=== PATIENT | male | born 1950 | race Caucasian/White ===

== ENCOUNTER 2017-12-23 13:01 | Emergency (ER) | payer OTHER, MEDICARE ==
[~2017-12-23] VITALS: Ht 188 cm; Wt 99.8 kg
[2017-12-23 13:51] LABS: ABSOLUTE BASOPHIL COUNT 0 /CUMM (0.0-0.2); ABSOLUTE EOSINOPHIL COUNT 0.1 /CUMM (0.0-0.7); ABSOLUTE GRANULOCYTE CT 8.7 /CUMM (1.4-6.5); ABSOLUTE LYMPH COUNT 1.3 /CUMM (1.2-3.4); ABSOLUTE MONOCYTE COUNT 0.7 /CUMM (0.10-0.60); BASOPHIL % 0.1 % (0.0-2.0); EOSINOPHIL % 1.1 % (0-5); GRANULOCYTE % 80.5 % (42.2-75.2); MEAN CORPUSCULAR HGB 31.5 PG (27.0-31.0); MEAN CORPUSCULAR HGB CONC 34.1 G/DL (33.0-37.0); MEAN CORPUSCULAR VOLUME 92.3 FL (80.0-94.0); MEAN PLATELET VOLUME 7.4 FL (7.4-10.4); PLATELET COUNT 321 /CUMM (130-400); RBC DISTRIBUTION WIDTH 13.5 % (11.5-14.5); RED BLOOD CELL CT 4.33 /CUMM (4.70-6.10); WHITE BLOOD CELL COUNT 10.8 /CUMM (4.8-10.8)
--- NOTE | 2017-12-23 15:10 | ED GI/GU/ABDOMINAL COMPLAINT ---
History of Present Illness General Chief Complaint: Abdominal Pain/Flank Pain Stated Complaint: ABD PAIN Source: patient, old records Exam Limitations: no limitations Vital Signs & Intake/Output Vital Signs & Intake/Output Vital Signs Date Time Temp Pulse Resp B/P B/P Pulse O2 O2 Flow FiO2 Mean Ox Delivery Rate 12/23 1607 98.3 77 20 174/78 98 Room Air 12/23 1305 97.7 94 18 97 Room Air Room Air Allergies Coded Allergies: No Known Allergies (12/23/17) Triage Note: PT TO ED WITH C/O LEFT GROIN PAIN X SEVERAL WEEKS, STARTED WITH BURNING "I THOUGHT IT WAS JUST FROM HAVING SPINAL SURGERY", BUT PAIN WORSENING, HAS APPT WITH UROLOGY DR MELÉNDEZ THIS COMING MONDAY, "BUT I DON'T WANT TO WAIT THAT LONG". PT DENIES DIFFICULTY OR PAIN WITH URINATION, FINISHED ANTIBIOTIC PRESCRIBED BY PMD "DIDN'T MAKE ANY DIFFERENCE, THAT IS WHY I AM GOING TO UROLOGIST". Triage Nurses Notes Reviewed? yes HPI: Patient had a lumbar fusion on October 26. Since then he has been having increasing pain in his left testicular area. Patient has been seen by his primary care physician twice and is due to see a urologist next week. The pain is burning in nature. The patient is concerned because he had a left inguinal hernia repair in the past. The pain radiates up towards his left hip and into his left lower quadrant. There is no nausea or vomiting. Patient states that the pain woke him up from sleep this morning when the pain was 10 out of 10 and currently the pain is 4 out of 10. There is no constipation or diarrhea. There is no dysuria or hematuria. Past History Travel History Traveled to [place] past 21 day No Medical History Any Pertinent Medical History? 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 No Review of Systems Review of Systems Constitutional: Reports: no symptoms. EENTM: Reports: no symptoms. Respiratory: Reports: no symptoms. Cardiovascular: Reports: no symptoms. GI: Reports: see HPI, abdominal pain. Genitourinary: Reports: see HPI. Musculoskeletal: Reports: no symptoms. Skin: Reports: no symptoms. Neurological/Psychological: Reports: no symptoms. Hematologic/Endocrine: Reports: no symptoms. Immunologic/Allergic: Reports: no symptoms. All Other Systems: Reviewed and Negative Physical Exam Physical Exam General Appearance: well developed/nourished, alert, awake, anxious, mild distress Head: atraumatic, normal appearance Eyes: Bilateral: PERRL, EOMI. Ears, Nose, Throat, Mouth: hearing grossly normal, moist mucous membrane Neck: normal inspection, supple, full range of motion Respiratory: normal breath sounds, chest non-tender, no respiratory distress, lungs clear Cardiovascular: regular rate/rhythm, normal peripheral pulses Gastrointestinal: normal bowel sounds, soft, non-tender, no organomegaly Back: normal inspection, normal range of motion Extremities: normal range of motion Neurologic/Psych: no motor/sensory deficits, awake, alert, oriented x 3, normal gait, normal mood/affect Skin: intact, normal color, warm/dry Core Measures ACS in differential dx? No Sepsis Present: No Sepsis Focused Exam Completed? No Progress Differential Diagnosis: hernia, ureterolithiasis, urinary retention, UTI/pyelo, NERVE INJURY Plan of Care: Orders Procedure Date/time Status URINALYSIS 12/23 1311 Complete COMPREHENSIVE METABOLIC PANEL 12/23 1311 Complete CBC WITHOUT DIFFERENTIAL 12/23 131 Complete Laboratory Tests 12/23/17 1351: Urine Color YEL, Urine Clarity CLEAR, Urine pH 6.0, Ur Specific [place] <= 1.005 , Urine Protein NEG, Urine Ketones NEG, Urine Nitrite NEG, Urine Bilirubin NEG, Urine Urobilinogen 0.2, Ur Leukocyte Esterase NEG, Ur Microscopic SEDIMENT EXAMINED, Urine RBC RARE, Urine Hemoglobin SMALL H, Urine Glucose NEG 12/23/17 1343: Anion Gap 8, Estimated GFR > 60, BUN/Creatinine Ratio 17.5, Glucose 105 H, Calcium 9.8, Total Bilirubin 0.5, AST 21, ALT 18 L, Alkaline Phosphatase 106, Total Protein 7.2, Albumin 4.3, Globulin 2.9, Albumin/Globulin Ratio 1.5, CBC w Diff NO MAN DIFF REQ, RBC 4.33 L, MCV 92.3, MCH 31.5 H, MCHC 34.1, RDW 13.5, MPV 7.4, Gran % 80.5 H, Lymphocytes % 11.9 L, Monocytes % 6.4, Eosinophils % 1.1, Basophils % 0.1, Absolute Granulocytes 8.7 H, Absolute Lymphocytes 1.3, Absolute Monocytes 0.7 H, Absolute Eosinophils 0.1, Absolute Basophils 0 Diagnostic Imaging: Viewed by Me: CT Scan. Discussed w/RAD: CT Scan. Radiology Impression: PATIENT: RUT SAVAGE PRESENT AGE: 67 PATIENT ACCOUNT NO: [id number] : 48 LOCATION: [facility] ORDERING PHYSICIAN: Manuel Correa MD SERVICE DATE: 12/23/17 EXAM TYPE: CAT - CT ABD & PELVIS W IV CONTRAST EXAMINATION: CT ABDOMEN AND PELVIS WITH CONTRAST CLINICAL INFORMATION: Left lower quadrant pain. COMPARISON: None TECHNIQUE: Multidetector volumetric imaging was performed of the abdomen and pelvis following IV administration of 95 mL of Optiray 320 intravenous contrast. Sagittal and coronal reformatted images were obtained on the technologist's workstation. DLP: 638 mGy-cm FINDINGS: LUNG BASES: The visualized lung bases are unremarkable. LIVER, GALLBLADDER, AND BILIARY TREE: The liver is normal in size, shape, and attenuation. No focal hepatic lesion or biliary ductal dilatation is present. The gallbladder is unremarkable with no evidence of radiopaque gallstones, gallbladder wall thickening, or obvious pericholecystic inflammatory changes. PANCREAS: Unremarkable. SPLEEN: Unremarkable. ADRENAL GLANDS: Unremarkable. KIDNEYS AND URETERS: There is left-sided hydroureteronephrosis extending to 0.7 cm distal left ureteral calculus near the ureterovesicular junction. The calculus measures approximately 960 Hounsfield units, arguing against a uric acid composition. Left periureteric stranding noted. No other renal or ureteral calculi bilaterally. No suspicious renal mass. BLADDER: Unremarkable. GASTROINTESTINAL TRACT: Bowel gas pattern is nonobstructive. No evidence of acute bowel inflammation. There are a few scattered colonic diverticula without evidence of diverticulitis. ABDOMINAL WALL: No significant hernia is appreciated. LYMPH NODES: No bulky adenopathy. VASCULAR: Scattered atherosclerotic calcification. PELVIC VISCERA: No free pelvic fluid. Coarse central prostate calcifications. Seminal vesicles are unremarkable. OSSEOUS STRUCTURES: No acute osseous abnormalities. Lumbar fusion hardware bridges L2 to L5 with associated disc spacing material and postlaminectomy change. IMPRESSION: An obstructing 0.7 cm distal left ureteral calculus with mild left hydroureteronephrosis. DICTATED BY: Bayron Wheat MD DATE/TIME DICTATED:1606 SHELL TRIM OPERATOR:DICKSON DATE/TIME TRANSCRIBED:12/23/171606 CONFIDENTIAL, DO NOT COPY WITHOUT APPROPRIATE AUTHORIZATION. <Electronically signed in Other Vendor System> SIGNED BY: Bayron Wheat MD 12/23/17 1757 Initial ED EKG: none Comments: Patient updated on labs and CAT scan results. Questionable nature. Patient has appointment with Dr. Meléndez are scheduled for this . Departure Departure Disposition: HOME OR SELF CARE Condition: Stable Clinical Impression Primary Impression: Kidney stone on left side Referrals: Medhat MCDONALD,Roxane Alexander MD,Jose Antonio Justice (PCP/Family) Additional Instructions: Take Percocet as needed for the pain. Percocet is very sedating so do not drive after taking it. Percocet is also very constipating to take a stool softener while you are on the Percocet. Take Zofran as needed for the nausea. Take Flomax as prescribed. Call Dr. Ceron's office on Monday. Return to the emergency department if symptoms worsen or for any concerns. Departure Forms: Customer Survey General Discharge Information Prescriptions: Current Visit Scripts Tamsulosin HCl (Flomax) 1 CAP PO DAILY #14 CAP Oxycodone HCl/Acetaminophen (Percocet 5-325 MG Tablet) 1-2 TAB PO Q6P PRN PAIN #20 TAB Ondansetron (Zofran Odt) 1 TAB SL TID PRN NAUSEA #10 TAB
[2017-12-23 16:07] VITALS: BP 174/78
--- NOTE | 2017-12-23 16:23 | CT SCAN REPORT ---
EXAMINATION: CT ABDOMEN AND PELVIS WITH CONTRAST CLINICAL INFORMATION: Left lower quadrant pain. COMPARISON: None TECHNIQUE: Multidetector volumetric imaging was performed of the abdomen and pelvis following IV administration of 95 mL of Optiray 320 intravenous contrast. Sagittal and coronal reformatted images were obtained on the technologist's workstation. DLP: 638 mGy-cm FINDINGS: LUNG BASES: The visualized lung bases are unremarkable. LIVER, GALLBLADDER, AND BILIARY TREE: The liver is normal in size, shape, and attenuation. No focal hepatic lesion or biliary ductal dilatation is present. The gallbladder is unremarkable with no evidence of radiopaque gallstones, gallbladder wall thickening, or obvious pericholecystic inflammatory changes. PANCREAS: Unremarkable. SPLEEN: Unremarkable. ADRENAL GLANDS: Unremarkable. KIDNEYS AND URETERS: There is left-sided hydroureteronephrosis extending to 0.7 cm distal left ureteral calculus near the ureterovesicular junction. The calculus measures approximately 960 Hounsfield units, arguing against a uric acid composition. Left periureteric stranding noted. No other renal or ureteral calculi bilaterally. No suspicious renal mass. BLADDER: Unremarkable. GASTROINTESTINAL TRACT: Bowel gas pattern is nonobstructive. No evidence of acute bowel inflammation. There are a few scattered colonic diverticula without evidence of diverticulitis. ABDOMINAL WALL: No significant hernia is appreciated. LYMPH NODES: No bulky adenopathy. VASCULAR: Scattered atherosclerotic calcification. PELVIC VISCERA: No free pelvic fluid. Coarse central prostate calcifications. Seminal vesicles are unremarkable. OSSEOUS STRUCTURES: No acute osseous abnormalities. Lumbar fusion hardware bridges L2 to L5 with associated disc spacing material and postlaminectomy change. IMPRESSION: An obstructing 0.7 cm distal left ureteral calculus with mild left hydroureteronephrosis.
[2017-12-23] MEDS ORDERED: PERCOCET 5-3251 EACH PO ×2 (16:41→16:55)
[2017-12-23] MEDS ORDERED: FLOMAX0.4 M1 PO (16:41)
[2017-12-23] MEDS ORDERED: ZOFRAN ODT4 M1 SL (16:41)
== END 2017-12-23 17:00 ==
LOC: ERH 13:01
PROVIDERS: Physician Assistant Medical
DX: N20.0 Calculus of kidney (principal); R10.32 Left lower quadrant pain; I10 Essential (primary) hypertension; N40.0 Benign prostatic hyperplasia without lower urinary tract symptoms
CPT/HCPCS: 74177; 81001; 96361; 96374; J1885